=== PATIENT | female | born 1975 ===

== ENCOUNTER 2022-01-14 11:14 | Emergency (ER) | payer OTHER ==
[2022-01-14 11:29] VITALS: BP 134/72; PULSE 71
[2022-01-14] MEDS ORDERED: Ketorolac 30 MG/ML SDV IM STA (11:31)
== END 2022-01-14 12:53 | disposition home or self-care (01) ==
LOC: MW.ED 11:14
DX: M25.562 Pain in left knee (principal); Z86.16 Personal history of COVID-19
CPT/HCPCS: 73560; 96372; 99283; J1885